=== PATIENT | male | born 1990 | race Caucasian/White ===

== ENCOUNTER 2024-05-17 19:34 | Emergency (ER) | payer SELFPAY ==
[2024-05-17 19:35] VITALS: BP 132/86
[2024-05-17 19:49] VITALS: BP 112/70
[2024-05-17 20:00] VITALS: BP 114/81
[2024-05-17] MEDS: DECADRON 10 MG PO (20:11)
[2024-05-17] MEDS: PEPCID 40 MG PO (20:11)
[2024-05-17] MEDS: BENADRYL 50 MG PO (20:12)
--- NOTE | 2024-05-17 22:41 | ED.GENMED ---
History of Present Illness
General
Chief Complaint: Allergic Reaction
Source: patient
Exam Limitations: none
Time Seen by Provider: 05/17/24 19:44
Nursing documentation reviewed up to this point in time: agreed with
History of Present Illness
History of Present Illness:
33-year-old male presenting to the emergency department today after getting stung by multiple bees on his face as well as his hands has had worsening swelling over the past few hours which prompted him come to the ER. Denies any trouble swallowing
or breathing any lightheadedness any chest pain.
Past History
Past History
ED Past Medical History: None
ED Past Surgical History: None
Social History
Tobacco: Non-smoker
Personal: Single
Living: with family
Employment: Employed
Review of Systems
Review of Systems
Allergies reviewed?: Yes
All Other Systems: ROS reviewed and negative except as documented in HPI and ROS
Phy Exam
Physical Exam
Physical Exam:
GENERAL: Alert , in no apparent distress
EYE: pupils equal and reactive
NECK: Supple, no significant adenopathy.
ENT: Moderate swelling to the periorbital region no tenderness o/p clr, mmm.
CARDIAC: Regular rate and rhythm .
LUNGS: Clear breath sounds bilaterally, no acute respiratory distress, no wheezes/rales/rhonchi
ABDOMEN: Soft, without focal tenderness, no r/g, no cvat
NEUROLOGICAL: Alert and oriented, no focal neuro deficits
SKIN: Warm and dry, skin intact.
MUSCULOSKELETAL: Diffuse swelling to the hands bilaterally. well perfused.
PSYCH: Normal and appropriate interaction.
Course
Orders/Labs/Results
Orders:
Orders
05/17/24 20:03
Dexamethasone [Decadron] 10 mg PO NOW STA
Diphenhydramine [Benadryl] 50 mg PO NOW STA
Famotidine [Pepcid] 40 mg PO NOW STA
Vital Signs
Initial and Last Documented VS:
Initial Vital Signs
Temp Pulse Resp BP Pulse Ox
98.2 F 77 18 132/86 98
05/17/24 19:35 05/17/24 19:35 05/17/24 19:35 05/17/24 19:35 05/17/24 19:35
Last Documented Vital Signs
Temp Pulse Resp BP Pulse Ox
98.2 F 49 16 114/81 98
05/17/24 19:35 05/17/24 21:45 05/17/24 21:45 05/17/24 20:00 05/17/24 21:45
MDM/Problems Addressed
MDM/Problems Addressed:
33-year-old male presenting to the emergency department today with concerns of multiple bee stings prior to arrival. Here vital signs are normal no involvement of the airway lungs are clear vital signs are normal no abdominal pain no signs of
anaphylaxis. Does have significant swelling around his eyes concerning this he was given steroids and antihistamines with significant improvement over the few hours he was in the ER stable for discharge return precautions given.
*Critical Care Note
Total Time (30-74mins, 75-104mins- exclusive of procedures): Not Applicable
ED Attending Note
-
Portions of this chart may have been created with voice recognition software.� Occasional wrong word or��sound alike� substitutions may have occurred due to the inherent limitations of voice recognition software.
Discharge Plan
Departure
Patient Disposition: Home (Routine Discharge)
Date of Disposition: 05/17/24
Time of Disposition: 22:43
Patient with high blood pressure during this ER visit?: No
Condition: Good
Covid-19: Not Applicable
Discharge Problem:
Bee sting
Instructions: Insect bites and stings
Prescriptions:
New
dexamethasone 6 mg tablet
12 mg PO ONCE Qty: 2 0RF
Rx Instructions:
Please use in 72 hours as needed
cetirizine [Zyrtec] 10 mg tablet
10 mg PO BID 4 Days Qty: 8 0RF
famotidine 20 mg tablet
20 mg PO BID 4 Days Qty: 8 0RF
epinephrine [Auvi-Q] 0.3 mg/0.3 mL auto-injector
0.3 mg IM Q5-15M PRN (Reason: anaphylaxis) Qty: 2 0RF
No Action
metaxalone [Skelaxin] 800 MG tablet
800 mg PO TIDPRN PRN (Reason: MUSCLE SPASM/TIGHTNESS) Qty: 20 0RF
Referrals:
NONE,* [Family Provider] -
Activity Restrictions/Additional Instructions:
You came to the emergency department today after bee stings. Please take the prescribed medications to help with any ongoing symptoms. Return to the emergency department for any worsening, new or concerning symptoms.
Interventions
Interventions:
*Risk Screen - Suicide Last Done: 05/17/24 19:35
*General Assessment Last Done: 05/17/24 19:35
*Neglect/Abuse Screening Last Done: 05/17/24 19:35
ED- Cardiac Assessment Last Done: 05/17/24 20:15
ED- Pulmonary Assessment Last Done: 05/17/24 20:15
ED-Skin Assessment Last Done: 05/17/24 20:15
Discharge Date and Time
Print Language: [id number]
== END 2024-05-17 22:52 | disposition home or self-care (01) ==
LOC: EMR 19:34
PROVIDERS: EMERGENCY PHYSICIAN Emergency Medicine
DX: T63.441A Toxic effect of venom of bees, accidental (unintentional), initial encounter (principal)
CPT/HCPCS: 99282